=== PATIENT | female | born 1985 | race Hispanic/Latino ===

== ENCOUNTER 2022-04-20 10:24 | Emergency (ER) | payer MEDICAID ==
[2022-04-20] MEDS ORDERED: Ketorolac Tromethamine 30 MG/ML VIAL ONE (10:56)
[2022-04-20] MEDS ORDERED: Lorazepam 2 MG/ML VIAL ONE (10:56)
== END 2022-04-20 11:55 | disposition home or self-care (01) ==
LOC: NAV ERS 10:24
DX: F41.9 Anxiety disorder, unspecified (principal); R07.89 Other chest pain; J45.909 Unspecified asthma, uncomplicated; F17.210 Nicotine dependence, cigarettes, uncomplicated; Z79.899 Other long term (current) drug therapy
CPT/HCPCS: 93005; 96374; 96375; J1885; J2060

== ENCOUNTER 2022-05-14 15:16 | Emergency (ER) | payer MEDICAID, OTHER | END 2022-05-14 16:30 | disposition home or self-care (01) | LOC: NAV ERS 15:16 | DX: J20.9 Acute bronchitis, unspecified (principal); J45.909 Unspecified asthma, uncomplicated; F17.210 Nicotine dependence, cigarettes, uncomplicated | CPT/HCPCS: 87804; 99283 ==